=== PATIENT | female | born 1940 | race Caucasian/White ===

== ENCOUNTER 2016-03-26 12:20 | Outpatient (CLI) | payer MEDICARE | END 2016-03-26 12:21 | disposition home or self-care (01) | DX: Z12.31 Encounter for screening mammogram for malignant neoplasm of breast (principal); Z85.3 Personal history of malignant neoplasm of breast ==

== ENCOUNTER 2016-04-25 12:50 | Outpatient (CLI) | payer MEDICARE | END 2016-04-25 12:51 | disposition home or self-care (01) | DX: Z13.820 Encounter for screening for osteoporosis (principal); Z78.0 Asymptomatic menopausal state ==

== ENCOUNTER 2017-04-03 07:09 | Outpatient (CLI) | payer MEDICARE ==
--- NOTE | 2017-04-04 15:47 | Mammography Report ---
DIGITAL SCREENING MAMMOGRAM: 04/03/2017 CLINICAL INDICATION: A 76-year-old with history of late childbearing, history of left breast cancer, status post lumpectomy and chemoradiation for screening. COMPARISON: 03/2016, 03/2015, 03/2014, 03/2013, 03/2012, 03/2011, 03/2010, 03/2009. TECHNIQUE: Routine CC and MLO projections were obtained of the breasts. FINDINGS: The breasts demonstrate scattered fibroglandular densities bilaterally. Postoperative and posttreatment changes in the left breast are stable. Coarse and punctate, typically benign calcifications are present. No suspicious masses, clustered microcalcifications, or regions of architectural distortion are identified. IMPRESSION: BENIGN FINDINGS. RECOMMENDATION: ROUTINE ANNUAL SCREENING UNLESS OTHERWISE CLINICALLY INDICATED. BIRADS CATEGORY 2-BENIGN FINDINGS. STANDARD QUALIFYING STATEMENTS: 1. This examination was reviewed with the aid of Computer-Aided Detection (CAD). 2. A negative or benign imaging report should not delay biopsy if clinically suspicious findings are present. Consider surgical consultation if warranted. More than 5% of cancers are not identified by imaging. 3. Dense breasts may obscure an underlying neoplasm. TD: 04/04/2017 15:45
== END 2017-04-03 07:10 | disposition home or self-care (01) ==
LOC: DI 07:09
PROVIDERS: ATTEND Internal Medicine
DX: Z12.31 Encounter for screening mammogram for malignant neoplasm of breast (principal); Z85.3 Personal history of malignant neoplasm of breast
CPT/HCPCS: 77067

== ENCOUNTER 2017-04-16 14:40 | Outpatient (CLI) | payer MEDICARE | END 2017-04-16 14:41 | disposition home or self-care (01) | LOC: SC 14:40 | PROVIDERS: ATTEND Nurse Practitioner Family | DX: G47.33 Obstructive sleep apnea (adult) (pediatric) (principal) | CPT/HCPCS: 99203; G0463; 99212 ==

== ENCOUNTER 2017-08-04 08:24 | Outpatient (CLI) | payer MEDICARE ==
--- NOTE | 2017-08-04 12:11 | XRAY Report ---
Procedure Date: 08/04/2017 Accession Number: [id number] / [id number] Procedure: XR - Lumbar Spine 2 View CPT Code: FULL RESULT: EXAM: Lumbar Spine 3 View DATE: 08/04/2017 9:18 AM CLINICAL HISTORY: BACKACHE LOWER COMPARISON: None. TECHNIQUE: 3 views. FINDINGS: Alignment: Thoracolumbar junction levoscoliosis. Grade 1 anterior listhesis of L4 on L5. Bones: No fractures or bone lesions. Disks: Disc spaces are narrowed most marked from T12 through L4. Facets: Multilevel degenerative changes most marked L4-5. Sacroiliac Joints: Unremarkable. Soft Tissues: Surgical clips right upper quadrant. Aortic calcification present. Other: Status post right total hip replacement. Moderately advanced left hip degenerative change. IMPRESSION: Degenerative change lumbar spine. Lumbar spinal stenosis is likely present but could be best assessed by MRI. RADIA
== END 2017-08-04 08:25 | disposition home or self-care (01) ==
LOC: DI 08:24
PROVIDERS: ATTEND Internal Medicine
DX: M47.896 Other spondylosis, lumbar region (principal); M51.36 Other intervertebral disc degeneration, lumbar region
CPT/HCPCS: 72100

== ENCOUNTER 2017-08-26 14:51 | Outpatient (CLI) | payer MEDICARE | END 2017-08-26 14:52 | disposition home or self-care (01) | LOC: SC 14:51 | PROVIDERS: ATTEND Nurse Practitioner Family | DX: G47.33 Obstructive sleep apnea (adult) (pediatric) (principal) | CPT/HCPCS: 99214; G0463; 99212 ==

== ENCOUNTER 2017-09-07 17:24 | Emergency (ER) | payer MEDICARE ==
[2017-09-07] MEDS ORDERED: ACETAMINOPHEN 325 MG TABLET PO STA (19:07)
[2017-09-07] MEDS ORDERED: traMADol 50 MG TABLET PO STA (19:07)
[2017-09-07 19:34] LABS: BASOPHILS % (AUTO) 0.8 %; EOSINOPHILS # (AUTO) 0.1 10^3/uL (0.0-0.7); HGB - HEMOGLOBIN 14.3 g/dL (12.0-16.0); LYMPHOCYTES # (AUTO) 2.5 10^3/uL (1.5-3.5); LYMPHOCYTES % (AUTO) 39.6 %; MEAN CORPUSCULAR HEMOGLOBIN 31.7 pg (27.0-31.0); MEAN CORPUSCULAR HGB CONC 34.6 g/dL (32.0-36.0); MEAN CORPUSCULAR VOLUME 91.8 fL (81.0-99.0); MEAN PLATELET VOLUME 8.5 fL (7.9-10.8); MONOCYTES # (AUTO) 0.6 10^3/uL (0.0-1.0); MONOCYTES % (AUTO) 10.2 %; NEUTROPHILS # (AUTO) 2.9 10^3/uL (1.5-6.6); NEUTROPHILS % (AUTO) 47.4 %; PLT - PLATELET COUNT 210 10^3/uL (130-450); RED CELL DISTRIBUTION WIDTH 13.2 % (12.0-15.0); WHITE BLOOD COUNT 6.2 x10^3/uL (4.8-10.8)
[2017-09-07 19:48] LABS: ALBUMIN 4.1 g/dL (3.2-5.5); ALBUMIN/GLOBULIN RATIO 1.3 (1.0-2.2); BILIRUBIN,TOTAL 0.8 mg/dL (0.2-1.0); CALCIUM 9.8 mg/dL (8.5-10.3); CREATININE 0.9 mg/dL (0.4-1.0); MAGNESIUM 1.8 mg/dL (1.7-2.8); TOTAL PROTEIN 7.3 g/dL (6.7-8.2)
--- NOTE | 2017-09-07 20:09 | CT Report ---
Procedure Date: 09/07/2017 Accession Number: [id number] / [id number] Procedure: CT - Head W/O CPT Code: FULL RESULT: EXAM: CT HEAD EXAM DATE: 09/07/2017 07:44 PM. CLINICAL HISTORY: Headache and feels slow thinking. COMPARISON: HEAD W/O 04/24/2014. TECHNIQUE: Multiaxial CT images were obtained from the foramen magnum to the vertex. Reformats: Sagittal and coronal. IV contrast: None. In accordance with CT protocol optimization, one or more of the following dose reduction techniques were utilized for this exam: automated exposure control, adjustment of mA and/or KV based on patient size, or use of iterative reconstructive technique. FINDINGS: Parenchyma: No acute infarction or hemorrhage. Patchy periventricular and subcortical low density white matter changes present. Extraaxial Spaces: Normal for age. No subdural or epidural collections identified. Ventricles: Normal in size and position. Sinuses and Orbits: Imaged paranasal sinuses, orbits, and mastoids show no significant abnormality. Bones: No evidence of fracture or calvarial defect. Other: None. IMPRESSION: 1. No acute intracranial abnormality. 2. Patchy periventricular low density white matter changes compatible with chronic small vessel ischemic disease. RADIA
[2017-09-07 20:14] VITALS: BP 157/99
--- NOTE | 2017-09-07 21:16 | ED Physician Documentation ---
PD HPI FOCAL NEURO - Stated complaint Stated Complaint: GLF/FACIAL INJURY - Chief complaint Chief Complaint: Neuro - History obtained from History obtained from: Patient, Family - History of Present Illness Timing - onset: Yesterday Timing - duration: Days (1-2) Timing - details: Gradual onset (she says she just wasn't feeling right yesterday (vaguely) with feeling poor concentration and generally weak. She says she did not do well playing cards last night (usually good at it) and family member says she was seeming confused about the card pairings/etc. No focal weakness. Today [place] [employer] [place], and says she tripped and fell, feeling that she was not coordinating her legs well. Did not feel that it was unilateral. No facial drooping.), Waxing and waning Severity of deficit: Mild Weakness: Other (feeling geneerally weak/tired, not focally). No: Face, Arm, Leg Numbness: No: Face, Arm, Leg Associated symptoms: Headache (yesterday but improved today), Fall (today, onto knees. She felt she struck her right cheek but not visible injury.). No: Nausea / vomiting, Syncope, Head injury Contributing factors: positive: Anticoagulated (plavix). negative: Vascular dz , Atrial fibrillation Baseline status: positive: A&OX3, ambulatory, indep Similar symptoms before: Diagnosis (not these particular symptoms but did have some aphasia and weakness due to Dx TIA this past year. Had workup for TIA per family and patient. On Plavix.) Recently seen: Not recently seen, Other (no recent change in meds) Review of Systems Constitutional: denies: Fever, Chills Nose: denies: Rhinorrhea / runny nose, Congestion Throat: denies: Sore throat Cardiac: reports: Pedal edema (mild chronic). denies: Chest pain / pressure, Palpitations, Calf pain Respiratory: denies: Dyspnea, Cough, Wheezing GI: denies: Abdominal Pain, Nausea, Vomiting, Diarrhea, Bloody / black stool : denies: Dysuria, Frequency Skin: denies: Rash, Lesions Neurologic: reports: Generalized weakness, Confused, Headache. denies: Focal weakness, Numbness, Difficulty speaking, Head injury Psychiatric: reports: Insomnia (had not slept as well the past few nights; did not have her CPAP for sleep as usual (mask had leak/worn so not holding pressure ). Getting new part tomorrow from local provider.). denies: Anxiety Immunocompromised: denies: Immunocompromised PD PAST MEDICAL HISTORY - Past Medical History Past Medical History: Yes Cardiovascular: Hypertension, High cholesterol Respiratory: Sleep apnea, CPAP use Neuro: TIA, Headaches Endocrine/Autoimmune: Type 2 diabetes GI: Chronic diarrhea CUT PRESSMAN: None : None HEENT: None Psych: None Musculoskeletal: Osteoarthritis, Gout Derm: None - Past Surgical History Past Surgical History: Yes General: Cholecystectomy Ortho: Hip replacement /CUT PRESSMAN: Other HEENT: Cataracts - Present Medications Home Medications: Ambulatory Orders Medication Instructions Recorded Confirmed Lovastatin 40 mg PO DAILY 04/05/13 09/07/17 Metformin HCl [Metformin HCl ER] 500 mg PO QID 04/05/13 05/19/14 Multivit-Min/FA/Lycopene/Lut 1 each PO DAILY 04/05/13 09/07/17 [Centrum Silver Tablet] Insulin Glargine [Lantus Solostar] 43 unit SUBQ QPM 05/18/14 09/07/17 Clopidogrel Bisulfate [Plavix] 75 mg PO DAILY 05/19/14 09/07/17 Metformin HCl 500 mg PO QDLUNCH 05/19/14 09/07/17 Aspirin 325 mg PO QDAC 09/07/17 09/07/17 Lisinopril 5 mg PO BID 09/07/17 09/07/17 Magnesium Oxide [Mag-Oxide] 200 mg PO QDAC 09/07/17 09/07/17 Semaglutide [Ozempic] 0.25 mg PO QDAC 09/07/17 09/07/17 Sitagliptin Phos/Metformin HCl 50 - 500 mg PO QDAC 09/07/17 09/07/17 [Janumet 50-1,000 mg Tablet] - Allergies Allergies/Adverse Reactions: Allergies Allergy/AdvReac Type Severity Reaction Status Date / Time No Known Drug Allergies Allergy Verified 09/07/17 17:57 - Social History Does the pt smoke?: No Smoking Status: Never smoker Does the pt drink ETOH?: No Does the pt have substance abuse?: No - Immunizations Immunizations are current?: Yes Immunizations: TDAP >10years/unknown - POLST Patient has POLST: No PD ED PE NORMAL - Vitals Vital signs reviewed: Yes - General General: Alert and oriented X 3, No acute distress, Well developed/nourished - HEENT HEENT: Moist mucous membranes, Pharynx benign - Neck Neck: Supple, no meningeal sign, No adenopathy - Cardiac Cardiac: RRR, No murmur - Respiratory Respiratory: Clear bilaterally - Abdomen Abdomen: Soft, Non tender - Back Back: No CVA TTP - Derm Derm: Normal color - Extremities Extremities: No deformity, No tenderness to palpate, Normal ROM s pain, No calf tenderness / cord, Other (1+ edema in both legs) - Neuro Neuro: Alert and oriented X 3, piercing specialist 2-12 intact, No motor deficit, No sensory deficit, Normal speech Eye Opening: Spontaneous Motor: Obeys Commands Verbal: Oriented GCS Score: 15 NIHSS - Level of Consciousness Level of consciousness: (0) Alert, Keenly responsive LOC Questions: (0) Answers both Q's correct LOC Commands: (0) Performs both correctly - Gaze Best Gaze: (0) Normal - Visual Visual: (0) No loss - Facial Palsy Facial Palsy: (0) Normal, symmetrical movement - Motor Arms (both separate) Motor Arm (right): (0) No drift Motor Arm (left): (0) No drift - Motor Legs (both separate) Motor Leg (right): (0) No drift Motor Leg (left): (0) No drift - Limb Ataxia Limb Ataxia: (0) Absent - Sensory Sensory: (0) Normal - Best Language Best Language: (0) No aphasia - Dysarthria Dysarthria: (0) Normal - Extinction and Inattention (formally neg Extinction and inattention: (0) No abnormality - Total Score/Results Total Score/Result: 0 Results - Vitals Vitals: Oxygen O2 Source Room air - Labs Labs: Laboratory Tests 09/07/17 09/07/17 09/07/17 19:31 19:31 19:31 WBC 6.2 RBC 4.50 Hgb 14.3 Hct 41.3 MCV 91.8 MCH 31.7 H MCHC 34.6 RDW 13.2 Plt Count 210 MPV 8.5 Neut # (Auto) 2.9 Lymph # (Auto) 2.5 [place] # (Auto) 0.6 Eos # (Auto) 0.1 Baso # (Auto) 0.0 Absolute Nucleated RBC 0.00 Nucleated RBC % 0.1 Sodium 138 Potassium 4.1 Chloride 102 Carbon Dioxide 25 Anion Gap 11.0 BUN 21 H Creatinine 0.9 Estimated GFR (MDRD) 61 L Glucose 178 H Calcium 9.8 Magnesium 1.8 Total Bilirubin 0.8 AST 23 ALT 18 Alkaline Phosphatase 79 Troponin I < 0.04 B-Natriuretic Peptide Total Protein 7.3 Albumin 4.1 Globulin 3.2 Albumin/Globulin Ratio 1.3 Lipase 43 09/07/17 19:31 WBC RBC Hgb Hct MCV MCH MCHC RDW Plt Count MPV Neut # (Auto) Lymph # (Auto) [place] # (Auto) Eos # (Auto) Baso # (Auto) Absolute Nucleated RBC Nucleated RBC % Sodium Potassium Chloride Carbon Dioxide Anion Gap BUN Creatinine Estimated GFR (MDRD) Glucose Calcium Magnesium Total Bilirubin AST ALT Alkaline Phosphatase Troponin I B-Natriuretic Peptide 47 Total Protein Albumin Globulin Albumin/Globulin Ratio Lipase - Rads (name of study) head CT Radiology: Prelim report reviewed (no bleeding nor focal findings) PD MEDICAL DECISION MAKING - ED course Complexity details: reviewed results, considered differential, d/w patient - Sepsis Event Vital Signs: Oxygen O2 Source Room air Departure - Departure Disposition: 01 Home, Self Care Clinical Impression: Generalized weakness Altered mental status Qualifiers: Altered mental status type: unspecified Qualified Code(s): R41.82 - Altered mental status, unspecified Condition: Stable Record reviewed to determine appropriate education?: Yes Instructions: ED Confusion, ED Transient Ischemic Attack Follow-Up: Levi Daley MD [Primary Care Provider] - Comments: Regular medications. Stay well hydrated. Discharge Date/Time: 09/07/17 21:28
== END 2017-09-07 21:28 | disposition home or self-care (01) ==
LOC: ED 17:24
DX: R53.1 Weakness (principal); R41.82 Altered mental status, unspecified; Z86.73 Personal history of transient ischemic attack (TIA), and cerebral infarction without residual deficits; Z91.81 History of falling; E11.9 Type 2 diabetes mellitus without complications; Z79.4 Long term (current) use of insulin; I10 Essential (primary) hypertension; E78.00 Pure hypercholesterolemia, unspecified; Z96.649 Presence of unspecified artificial hip joint; Z79.82 Long term (current) use of aspirin
CPT/HCPCS: 36415; 70450; 80053; 83690; 83735; 83880; 84484; 85025; 99284; A9270

== ENCOUNTER 2018-01-01 08:40 | Outpatient (CLI) | payer MEDICARE | END 2018-01-01 08:41 | disposition home or self-care (01) | LOC: SC 08:40 | PROVIDERS: ATTEND Nurse Practitioner Family | DX: G47.33 Obstructive sleep apnea (adult) (pediatric) (principal) | CPT/HCPCS: 99214; G0463; 99212 ==

== ENCOUNTER 2018-02-26 08:16 | Outpatient (CLI) | payer MEDICARE | END 2018-02-26 08:17 | disposition home or self-care (01) | LOC: SC 08:16 | PROVIDERS: ATTEND Nurse Practitioner Family | DX: G47.33 Obstructive sleep apnea (adult) (pediatric) (principal) | CPT/HCPCS: 99214; G0463; 99212 ==

== ENCOUNTER 2018-05-06 08:44 | Outpatient (CLI) | payer MEDICARE | END 2018-05-06 08:45 | disposition home or self-care (01) | LOC: SC 08:44 | PROVIDERS: ATTEND Nurse Practitioner Family | DX: G47.33 Obstructive sleep apnea (adult) (pediatric) (principal) | CPT/HCPCS: 99214; G0463; 99212 ==

== ENCOUNTER 2018-06-09 07:45 | Outpatient (CLI) | payer MEDICARE ==
--- NOTE | 2018-06-09 09:18 | Mammography Report ---
Reason: SCREENING MAMMO Procedure Date: 06/09/2018 Accession Number: [id number] / [id number] Procedure: [facility] - Screening Mammo w/[facility] CPT Code: FULL RESULT: EXAM: Screening Mammo w/[facility] DATE: 06/09/2018 8:20 AM CLINICAL HISTORY: Screening encounter. History of late childbearing. Personal history of left breast cancer status post lumpectomy and chemoradiation in 2004. TECHNIQUE: (B) - Bilateral CC and MLO views were obtained. COMPARISON: 04/03/2017 through 04/05/2014. PARENCHYMAL PATTERN: (A) - The breast(s) demonstrate(s) scattered fibroglandular densities. FINDINGS: Postsurgical and posttreatment changes in the left breast are stable. In the right breast MLO projection on 3-D image 64, 10.5 cm from the nipple is an isodense 1 cm nodule which is not adequately seen on prior 2-D imaging in this projection. The same finding is identified on the right CC projection, 9 cm from the nipple on 2-D and on 3-D image 60. Comparison of the right CC view to previous exams demonstrates long-term stability, typically benign. There are no suspicious masses, calcifications, or areas of distortion. IMPRESSION: Benign findings. BI-RADS category 2. RECOMMENDATION: (ANNUAL) - Recommend routine annual screening mammography. BI-RADS CATEGORY: (2) - Benign Findings. STANDARD QUALIFYING STATEMENTS: 1. This examination was not reviewed with the aid of Computer-Aided Detection (CAD). 2. A negative or benign imaging report should not preclude biopsy if clinically suspicious findings are present. 3. Dense breasts may obscure an underlying neoplasm. 4. This examination was reviewed with the aid of 3D breast imaging (tomosynthesis).
== END 2018-06-09 07:46 | disposition home or self-care (01) ==
LOC: DI 07:45
DX: Z12.31 Encounter for screening mammogram for malignant neoplasm of breast (principal); Z85.3 Personal history of malignant neoplasm of breast; Z92.3 Personal history of irradiation; Z92.21 Personal history of antineoplastic chemotherapy
CPT/HCPCS: 77063; 77067

== ENCOUNTER 2018-07-07 08:45 | Outpatient (CLI) | payer MEDICARE | END 2018-07-07 08:46 | disposition home or self-care (01) | LOC: SC 08:45 | PROVIDERS: ATTEND Nurse Practitioner Family | DX: G47.33 Obstructive sleep apnea (adult) (pediatric) (principal) | CPT/HCPCS: 99214; G0463; 99212 ==

== ENCOUNTER 2018-10-06 09:07 | Outpatient (CLI) | payer MEDICARE ==
[2018-10-07 09:06] VITALS: BP 146/80
--- NOTE | 2018-10-07 09:06 | SLEEP CARE CONSULTATION ---
Information from patient questionnaire entered by Aneta Amaral. I have reviewed and concur with the information entered by Aneta Amaral. This document represents the service I personally performed and the decisions made by me, Trini Arrieta, RN, MSN, KIER T[employer]ER. History of Present Illness Previous diagnosis: Mild, Severe, Obstructive Sleep Apnea-Hypopnea Syndrome AHI: 63.4 Reason for CPAP/BiPAP follow up: three month Equipment type: CPAP Equipment obtained from: [facility] Mask style: Full face Backup mask available: Yes Last cushion change: a month ago HPI additional information: She has gained more weight. She has started to use the pool but not as often as she would like due to [employer] scheduled swimming lessons. CPAP Compliance Data - Data Reviewed with Patient Average duration of nightly device use: 6.45 Compliance rate %: 78.9 Current pressure setting (cmH2O): 12-20 Humidity settin Average residual AHI: 3.7 Average large leak: 5 mins 36 sec Subjective Missed days of use due to: reports: other (coming home tired and feels too tired to use. ) Patient concerns: reports: nasal congestion (seasonal and not interferring with CPAP use. ), dry mouth, nose, throat (only when does not use CPAP ). denies: aerophagia, mask discomfort, air blowing in eyes, mask leak noise, condensation in mask/hose, epistaxis Observed to snore while using device: No (single sleeps alone / family visiting no snore noted) On therapy, patient: reports: sleeping better, awakening more refreshed, being more awake and alert during the day, more rested overall. denies: drowsiness while driving Initial [place] Sleepiness Scale score: 4 Current [place] Sleepiness Scale score: 3 Allergies and Home Medications Known drug allergies: No Home medication list reviewed: Yes Allergy and home medication list: Celeste 10-40mg tab one daily Plavix 75mg tab one daily Lovastatin 40mg tab one daily at bedtime Lantus SoloStar 100unit/ml Inject 43 Units SQ daily as directed Metformin HCI 500mg tab 2 am, 1 noon, 2 pm Janumet 50-500mg tab one daily Aspirin 325mg tab one daily Lisinopril 5mg tab one daily Colessevelam HCI 3.75mg tab one daily Multivitamin Tab one daily Mag 200 Tab one daily Review of Systems Review of systems same as previous: No (irregular heart rate noted on exam) Physical Exam Blood Pressure: 146/80 (RIGHT ARM ONLY) Cuff size: long Heart Rate: 105 (apical checked as noted skipped beats in blood pressure measurement - Apical showed regular rhythm with 4-6 skipped beats a minute over 2 minutes auscultation - patient unaware of any difference in heart rate) O2 Saturation: 97 Height: 5 ft 8.5 in Weight (kg): 112.128 kg Body Mass Index: 37.0 BMI Classification: Class 2 Impression and Plan 1. Obstructive Sleep Apnea-Hypopnea Syndrome, severe, with good treatment compliance and good apnea control. On CPAP therapy, there is improved sleep quality and continues to feel more rested overall. To reduce patient from falling asleep without CPAP when she is overtired and does not want to hassle with the equipment, I again reviewed her sleep study and showed her the polysomnography hypnogram and resulting moderate hypoxia when her apnea not treated and then the titration hypnogram showing resolution of hypoxia with CPAP treatment. She is strongly encourage to use CPAP with all sleep due to the health risks of untreated apnea, one is a stroke which she had about 4-5 years ago. Mild oral dryness despite high humidity setting and no large mask leaks. She can use oral dryness products such as Biotene, Smart mouth and follow up with dentist. She has also gained weight again, I reviewed again the effect of weight gain to her CPAP pressure requirements and overall health. She is advised to lose weight. A diet consultation can assist patient reach weight loss goals and advised to follow up with PCP for referral. Patient's apnea severity and rationale for treatment to reduce apnea, improve sleep quality and reduce cardiovascular and cerebrovascular events was reviewed. I also reviewed the benefit of consistent device use of CPAP for cerebrovascular disease, arrhythmia, diabetes. 2. Arrhythmia, noted a couple skipped heart beats while taking blood pressure. Apical auscultation noted about 4-6 skipped beats a minute over 2 minutes. Patient unaware of skipped beats. Overall cardiac rhythm seemed regular. She denies chest pain, shortness of breath - states "feels as usual". Due to history of stroke in 2013 ( TIA), an EKG will be ordered for further evaluation to determine if treatment indicated and Dr. Daley will be notified. Patient will follow up with PCP for further evaluation. * Continue CPAP pressure at 12-20 cmH2O * Use CPAP with all sleep * EKG * Follow up with PCP for further evaluation of arrhythmia. * Follow up with dentist for further evaluation of oral dryness * Notify me if snoring with mask or feeling that the pressure is too much or too little * Attempt to lose weight * Consider diet consultation. * Return for follow up in 6 months, or sooner if concerns arise Addendum: I called Dr Barrios office at 10:45 while patient waiting in [facility]. I spoke to Lindsay and asked if they have an EKG available. I informed of patient's irregular rhythm as noted above. An order written to obtain EKG due to stroke history and wondered if Dr. Daley would like it done in office. He was not available as seeing patient and will inform. She also stated that their schedule was booked. I then informed patient and advised her to go to [facility] to get her EKG. She was informed again why the test was being ordered. Patient agreed with plan. I again checked her apical heart rate and was about 110 beats a minutes but now no skipped beats noted. At 11:40 I received a call from Dr. Daley's office. Lindsay stated that Dr. Daley would like patient to go to ER for further evaluation. I later was able to contact patient at 12:[address] Daley's advice. She had not yet gone to get EKG as needed to eat her lunch first. She was advised to go to ER instead for evaluation and that I would call ahead to inform. She agreed with plan. I called ER triage and informed of patient arrival. I asked patient to contact me after return from ER. Patient called later in afternoon and I returned call at 16:35. She went to [facility] in at ER and showed her prescription for EKG and informed that it could be done without ER visit. Patient chose to have EKG completed and not ER visit due to higher cost. Patient given ER precautions and advised to make follow up with Dr. Daley for further evaluation. She agreed with plan. I then called [facility] and spoke to EKG department. Informed to send results to Dr. Daley office as well and agreed with plan. I asked about reading and stated some PAC's 10/07/18 Patient called about 2:15 asking about EKG. Printed copy just received in hospital mail and showed sinus tachycardia and PVCs. Patient stated she called Dr. Barrios office and made an appointment for follow up next Friday and was told they had not received EKG. Thus it was faxed to his office after speaking to patient. When inquired how patient was doing, she stated she was able to use her PAP all through the night and feels good. ER precautions again reviewed and to contact this office if any problems using her PAP. I spent 100% of this 40 minute visit face to face with the patient with greater than 50% of this was spent time counseling the patient and coordination of care.
== END 2018-10-06 09:08 | disposition home or self-care (01) ==
LOC: SC 09:07
PROVIDERS: ATTEND Nurse Practitioner Family
DX: G47.33 Obstructive sleep apnea (adult) (pediatric) (principal); I49.9 Cardiac arrhythmia, unspecified
CPT/HCPCS: 93005; 99215; G0463; 99212